=== PATIENT | male | born 1950 | race Caucasian/White ===

== ENCOUNTER 2016-06-18 21:27 | Emergency (ER) | payer BC ==
[~2016-06-18] VITALS: Ht 177.8 cm; Wt 86.2 kg
[2016-06-18] MEDS ORDERED: VITAPULSE (22:25)
[2016-06-18] MEDS ORDERED: DILT180T7 (22:25)
[2016-06-18] MEDS ORDERED: LOSA50TA36 (22:25)
[2016-06-18] MEDS ORDERED: OMEGA (22:27)
[2016-06-18] MEDS ORDERED: KRILL OIL (22:27)
[2016-06-18] MEDS ORDERED: methylPREDNISolone 125 MG (Solu-MEDROL) VIAL IM ONE (22:45)
[2016-06-18] MEDS ORDERED: diphenhydrAMINE 50 MG/ML INJ (BENADRYL) IM ONE (22:45)
[2016-06-18] MEDS ORDERED: FAMOTIDINE 20 MG (PEPCID) TABLET ONE (22:52)
[2016-06-18] MEDS ORDERED: PRD20T PO (23:25)
--- NOTE | 2016-06-18 23:26 | ED General ---
General Chief Complaint: Allergic Reaction Stated Complaint: POSSIBLE ALLERGIC REACTION Nursing Triage Note: PATIEINT HAD AN OCCULAR GRANT COUPLE HRS AGO AND TOOK AN OTC MIGRAINE RELIEF MED (ACETAMINOPHEN/ASA/CAFFEINE). WITHIN 15 MIN, PT BROKE OUT IN HIVES GENERALIZED. NO AIRWAY ISSUE REPORTED. Nursing Sepsis Screen: No Definite Risk Source of Information: Patient Exam Limitations: No Limitations History of Present Illness Time Seen by Provider: 22:26 Initial Comments This 66-year-old gentleman presents to the emergency room with apparent allergic reaction from an [id number] headache medication containing acetaminophen, aspirin, and caffeine. He has not had reactions to these ingredients in the past. He has diffuse erythematous, pruritic, urticarial rash. He has not yet treated the reaction. He denies any tongue, lip, throat, or airway involvement. Allergies and Home Medications Allergies Coded Allergies: sulfamethoxazole (Verified Adverse Reaction, Mild, RASH, 06/18/16) trimethoprim (Verified Adverse Reaction, Mild, RASH, 06/18/16) Home Medications (Reported) (Reported) Diltiazem HCl 180 Mg Tab.er.24h #60 (Reported) Losartan Potassium 50 Mg Tablet #30 (Reported) Prednisone 20 Mg Tab #3 20 MG PO DAILY Prescribed by: PANCHITO OVIEDO on 06/18/16 0734 Constitutional: no symptoms reported EENTM: no symptoms reported Respiratory: no symptoms reported Cardiovascular: no symptoms reported Gastrointestinal: no symptoms reported Genitourinary: no symptoms reported Musculoskeletal: no symptoms reported Skin: see HPI Psychiatric/Neurological: No Symptoms Reported Hematologic/Lymphatic: No Symptoms Reported Past Limlmse-Qohwlo-Odzxbm Hx Patient Social History Alcohol Use: Rarely Uses Recreational Drug Use: No Smoking Status: Never a Smoker 2nd Hand Smoke Exposure: No Recent Foreign Travel: No Contact w/Someone Who Travel: No Recent Infectious Disease Expo: No Recent Hopitalizations: No Immunizations Up To Date Date of Influenza Vaccine: Jan 12, 2016 Seasonal Allergies Seasonal Allergies: No Surgeries HX Surgeries: Yes Surgeries: Adenoidectomy, Tonsillectomy Respiratory Hx Respiratory Disorders: No Cardiovascular Hx Cardiac Disorders: Yes (MITRAL VALVE PROLAPSE) Cardiac Disorders: Hypertension, Irregular Heartbeat, Valvular Heart Disease Neurological Hx Neurological Disorders: Yes (OCCULAR MIGRAINES) Neurological Disorders: Headaches /Migraines Reproductive System Hx Reproductive Disorders: No Genitourinary Hx Genitourinary Disorders: No Gastrointestinal Hx Gastrointestinal Disorders: No Musculoskeletal Hx Musculoskeletal Disorders: No Endocrine Hx Endocrine Disorders: No HEENT HX ENT Disorders: No Cancer Hx Cancer: No Psychosocial Hx Psychiatric Problems: No Integumentary HX Skin/Integumentary Disorder: No Blood Transfusions Hx Blood Disorders: No Physical Exam Vital Signs Vital Sign - Last 12Hours 06/18/16 06/18/16 22:08 23:35 Temp 98.7 Pulse 50 Resp 18 B/P 181/83 Pulse Ox 97 O2 Delivery Room Air Capillary Refill : Less Than 3 Seconds General Appearance: No Apparent Distress WD/WN HEENT: PERRL/EOMI Normal ENT Inspection Pharynx Normal Respiratory: Lungs Clear Normal Breath Sounds No Accessory Muscle Use No Respiratory Distress Cardiovascular: Regular Rate, Rhythm No Edema No Murmur Extremity: Normal Inspection No Pedal Edema Neurologic/Psychiatric: Alert Oriented x3 No Motor/Sensory Deficits Normal 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 Norm as Tested Skin: Rash (diffuse erythematous and pruritic rash) Progress/Results/Core Measures Results/Orders My Orders Orders-PANCHITO PHILLIPS MD Methylprednisolone Sod Succ (Solu-Medrol (06/18/16 22:45) Diphenhydramine Injection (Benadryl Inje (06/18/16 22:45) Famotidine Tablet (Pepcid Tablet) (06/19/16 09:00) Famotidine Tablet (Pepcid Tablet) (06/18/16 22:52) Medications Given in ED Current Medications Medications Dose Ordered Sig/Gaetano Route Start Time Stop Time Status Last Admin Dose Admin Diphenhydramine HCl 25 mg ONCE ONCE IM 06/18/16 22:45 06/18/16 22:46 DC 06/18/16 22:57 25 MG Methylprednisolone Sodium Succinate 125 mg ONCE ONCE IM 06/18/16 22:45 06/18/16 22:46 DC 06/18/16 22:57 125 MG Vital Signs/I&O Vital Sign - Last 12Hours 06/18/16 06/18/16 06/18/16 06/18/16 22:08 22:57 22:57 23:35 Temp 98.7 98.7 98.7 Pulse 50 84 Resp 18 B/P 181/83 Pulse Ox 97 99 O2 Delivery Room Air Blood Pressure Mean: 115 Progress Note : Progress Note Patient was given Solu-Medrol and Benadryl IM as well as Pepcid orally. He had excellent response. Departure Impression Impression: Primary Impression: Allergic reaction caused by a drug Qualified Code: T78.40XA - Allergy, unspecified, initial encounter Disposition: 01 HOME, SELF-CARE Condition: Improved Departure-Patient Inst. Decision time for Depature: 23:22 Referrals: ARCELIA DANIEL DO (PCP/Family) Primary Care Physician Patient Instructions: Drug Allergy Add. Discharge Instructions: If symptoms begin to rebound, take Benadryl 50 mg every 4 hours as needed. Complete the prednisone as prescribed to prevent rebound. If symptoms become severe including difficulty breathing, throat tightness, tongue swelling, or lip swelling, call 911 or present immediately to the emergency room. Avoid use of this medication in the future. Exercise caution when taking medications with aspirin, acetaminophen, or caffeine. Have Benadryl accessible if you try these medications in the future. All discharge instructions reviewed with patient and/or family. Voiced understanding. Scripts Prednisone 20 Mg Tab20 Mg PO DAILY #3 TAB Prov:PANCHITO PHILLIPS MD 06/18/16 PANCHITO PHILLIPS MD Jun 18, 2016 23:26
[2016-06-18 23:35] VITALS: BP 148/98
[2016-06-19] MEDS ORDERED: FAMOTIDINE 20 MG (PEPCID) TABLET PO SCH (09:00)
== END 2016-06-18 23:35 | disposition home or self-care (01) ==
LOC: EDUNIT# 21:27 → ER 21:29
DX: R21 Rash and other nonspecific skin eruption (principal); T78.40XA Allergy, unspecified, initial encounter; R51 Headache; I10 Essential (primary) hypertension
CPT/HCPCS: 96372; 99282

== ENCOUNTER 2019-12-09 07:06 | Day surgery (SDC) | payer MEDICARE, OTHER ==
[2019-12-09] VITALS (11 sets, daily range): BP systolic 107–187; BP diastolic 58–89
[~2019-12-09] VITALS: Ht 178 cm; Wt 77.0 kg
[~2019-12-09 07:06] MED LIST: DILT180T7; KRILL OIL; LOSA50TA63; OMEGA; PRD20T PO; VITAPULSE
[2019-12-09] MEDS ORDERED: HEParin (CATH LAB) 2,000 ML IV ONE (07:07)
[2019-12-09] MEDS ORDERED: LIDOCAINE 1% INJ 20 ML 20 ML VIAL ONE (07:07)
[2019-12-09] MEDS ORDERED: NS IV 1000 ML 1,000 ML ONE (07:07)
[2019-12-09] MEDS ORDERED: NS IV 1000 ML 1,000 ML IV SCH ×2 (07:15→09:51)
[2019-12-09] MEDS ORDERED: LOSA50TA63 PO ×2 (07:34→10:00)
[2019-12-09] MEDS ORDERED: BUPR150T7 PO (07:34)
[2019-12-09] MEDS ORDERED: METO50TA7 PO ×2 (07:34→10:00)
[2019-12-09 07:35] LABS: HEMOGLOBIN 14.9 G/DL (13.3-17.7); MEAN PLATELET VOLUME 8.8 FL (7.4-10.4); WHITE BLOOD COUNT 7.3 10^3/uL (4.3-11.0)
[2019-12-09 07:52] LABS: PROTHROMBIN TIME PATIENT 13.3 SEC (12.2-14.7)
[2019-12-09 08:01] LABS: ALBUMIN 4.1 GM/DL (3.2-4.5); BILIRUBIN,TOTAL 0.8 MG/DL (0.1-1.0); CALCIUM 9.1 MG/DL (8.5-10.1); CREATININE SERUM 1.24 MG/DL (0.60-1.30); POTASSIUM 3.8 MMOL/L (3.6-5.0)
[2019-12-09] MEDS ORDERED: MIDAZOLAM 5 MG/5 ML (VERSED) VIAL ONE (08:52)
[2019-12-09] MEDS ORDERED: fentaNYL INJECTION 100 MCG/2 ML AMP ONE (08:52)
--- NOTE | 2019-12-09 09:47 | Cardiac Procedure Note-CS/ASA ---
Pre-Procedure Note Pre-Op Procedure Note H&P Reviewed The H&P was reviewed, patient examined and no changes noted. Date H&P Reviewed: Dec 09, 2019 Time H&P Reviewed: 09:00 Conscious Sedation Pre-Proced Time 09:00 ASA Score 3 For ASA 3 and 4: Consider anesthesia and medical clearance. Also, for patients with a history of failed moderate sedation consider anesthesia. Airway Lungs Heart ASA score ASA 1: a normal healthy patient ASA 2: a patient with a mild systemic disease (mid diabetes, controlled hypertension, obesity ASA 3: a patient with a severe systemic disease that limits activity (angina, COPD, prior Myocardial infarction) ASA 4: a patient with an incapacitating disease that is a constant threat to life (CHF, renal failure) ASA 5: a moribund patient not expected to survive 24 hrs. (ruptured aneurysm) ASA 6: a declared brain- patient whose organs are being harvested. For emergent operations, add the letter E after the classification Mallampati Classification Grade 1 Sedation Plan Analgesia, Amnesia, Plan communicated to team members, Discussed options with patient/fam, Discussed risks with patient/fam The patient is an appropriate candidate to undergo the planned procedure, sedation, and anesthesia. The patient immediately re-assessed prior to indication. Desirae MARTIN MD Dec 09, 2019 09:47
--- NOTE | 2019-12-09 09:51 | Coronary Angiography Report ---
Coronary Angiography Report DATE OF PROCEDURE: 12/09/19 INDICATION: abnormal nuclear stress test, nonsustained ventricular tachycardia. PREOPERATIVE DIAGNOSIS: abnormal nuclear stress test, nonsustained ventricular tachycardia. POSTOPERATIVE DIAGNOSIS: patent epicardial coronary arteries. HISTORY: this is a 69-year-old gentleman with history of nonsustained ventricular tachycardia and abnormal nuclear stress test.Therefore, the patient was scheduled for coronary angiography. PROCEDURES PERFORMED: 1.Coronary angiography. 2.Left heart catheterization. COMPLICATIONS: None. SPECIMENS: None. ESTIMATED BLOOD LOSS: 10 mL ANESTHESIA: Conscious sedation ANTICOAGULATION: none. CONTRAST: 59 mL. FLUOROSCOPY: 3.1 minutes. FLOUROSCOPY DOSE: 359 mgy. 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 All the risks and complications were explained in detail; this included the risk of bleeding, vascular damage, stroke, PR and even . The patient was draped and prepped in the usual sterile fashion. Access was gained in the right femoral artery with a 5 [place] sheath. coronary angiography and left heart catheterization was performed with JR4 and JL4 catheter. FINDINGS: 1.Left main: patent. 2.LAD: patent. 3.Left circumflex artery: patent. 4.RCA: patent. 5.Left heart catheterization: LV pressure 129/0 mmHg. LVEDP 10. aortic pressure 124/80 mmHg. Normal LV function with no wall motion abnormalities. No gradient across the aortic valve. CONCLUSIONS: patent epicardial coronary arteries. Normal LV function. Frequent PVCs. Beta blockers for nonsustained ventricular tachycardia. Timmy Masters MD, FACP, FACC, [facility] Interventional Cardiology Desirae MASTERS MD Dec 09, 2019 09:51
[2019-12-09] MEDS ORDERED: PATIENT MAY USE OWN MEDS, ALL PO SCH (10:00)
--- NOTE | 2019-12-09 10:00 | Discharge Inst-Post CATH ---
Discharge Inst-CATH/EP Problems Reviewed?: Yes Final Diagnosis nonsustained ventricular tachycardia, patent epicardial coronary arteries Post Cardiac Cath/EP D/C Inst Follow Up/Plan follow with Dr. Masters in 3 weeks. <b>CARDIAC CATH/EP PROCEDURE DISCHARGE INSTRUCTIONS</b> ACTIVITY * Go Home directly and rest. * Limit activity of the leg (or wrist if it was used) for 7 days including aerobics, swimming, jogging, bicycling, etc. * Restrict stair-climbing for 7 days if possible, if not, climb up with your non-cath leg, then bring together on the same step. * Avoid lifting, pushing, pulling or excessive movement of the affected extremity for 7 days. * Customary sexual activity may be resumed after 2 days-use caution not to use a position that strains or causes pain to the affected extremity. * No driving for 24 hours. * NO SMOKING. * Avoid straining for bowel movements for 7 days. * Gentle walking on level ground is allowed. * Returning to work will depend on the type of procedure and the results. Your doctor will discuss this with you. CALL YOUR DOCTOR FOR ANY OF THE FOLLOWING: *If bleeding from the puncture site occurs- Apply gentle pressure to site with clean cloth and call your doctor or EMS. * If a knot or lump forms under the skin, increases in size, or causes pain. * If bruising appears to be worsening or moving further down your leg instead of disappearing. * Temperature above 101 F. CARE OF YOUR GROIN INCISION; * Bruising or purple discoloration of the skin near the puncture site is common. * You may shower only, no bathtub bathing for 5 days. Be careful to avoid slipping as your leg may feel stiff. * If a closure device was used on your femoral artery, please see the attached guide regarding care of the device and your leg. * Leave dressing on FOR 24 hours. CARE OF YOUR WRIST INCISION; * Bruising or purple discoloration of the skin near the puncture site is common. * You may shower. * DO NOT submerge wrist. * Leave dressing on FOR 24 hours. Desirae MASTERS MD Dec 09, 2019 10:00
--- NOTE | 2019-12-09 10:03 | Cardiology Discharge Summary ---
Diagnosis/Chief Complaint Date of Admission 12/09/2019 Date of Discharge 12/09/2019 Admission Diagnosis non-sustained ventricular tachycardia, abnormal nuclear stress test. Final/Discharge Diagnosis patent epicardial coronary arteries Chief Complaint/HPI Chief Complaint/HPI 69-year-old gentleman with nonsustained ventricular tachycardia and abnormal nuclear stress test. Discharge Summary Procedures coronary angiography showed patent epicardial coronary arteries. Normal LV function with no wall motion Abnormalities. Discharge Physical Examination unremarkable Hospital Course Was the Problem List Reviewed?: Yes unremarkable. Pending Labs Laboratory Tests 12/09/19 07:25: White Blood Count 7.3, Red Blood Count 4.77, Hemoglobin 14.9, Hematocrit 46, Mean Corpuscular Volume 96, Mean Corpuscular Hemoglobin 31, Mean Corpuscular Hemoglobin Concent 33, Red Cell Distribution Width 13.0, Platelet Count 263, Mean Platelet Volume 8.8, Prothrombin Time 13.3, INR Comment 1.0, Activated Partial Thromboplast Time 28, Sodium Level 140, Potassium Level 3.8, Chloride Level 105, Carbon Dioxide Level 27, Anion Gap 8, Blood Urea Nitrogen 21, Creatinine 1.24, Estimat Glomerular Filtration Rate 57, BUN/Creatinine Ratio 17, Glucose Level 104, Calcium Level 9.1, Corrected Calcium 9.0, Total Bilirubin 0.8, Aspartate Amino Transf (AST/SGOT) 22, Alanine Aminotransferase (ALT/SGPT) 19, Alkaline Phosphatase 70, Total Protein 7.0, Albumin 4.1 Discussion & Recommendations Discussion increase the dose of metoprolol. decrease the dose of losartan. Follow up appt.: Dr. Masters in 2-3 weeks. Dicharge Diet: Cardiac Diet Activity as Tolerated: Yes Home Medications Reviewed patient Home Medication Reconciliation performed by pharmacy medication reconciliations automotive brake technician and/or nursing. Patients Allergies have been reviewed. Discharge Home Medications: Reviewed and agree with Discharge Medication list on patient's Discharge Instruction sheet Condition at discharge stable. Instructions to patient/family follow with Dr. Masters in 3 weeks. Desirae MASTERS MD Dec 09, 2019 10:03
--- NOTE | 2019-12-09 14:05 | NUR ---
pt up walking in hallways w/o difficulty.
== END 2019-12-09 14:15 | disposition home or self-care (01) ==
LOC: CATH 07:06 → CSD 10:22 → CATH 14:15
PROVIDERS: ATTEND Internal Medicine Interventional Cardiology
DX: I47.2 Ventricular tachycardia (principal); R94.39 Abnormal result of other cardiovascular function study; Z88.8 Allergy status to other drugs, medicaments and biological substances; Z79.899 Other long term (current) drug therapy
CPT/HCPCS: 80053; 85027; 85610; 85730; 87081; 93458; C1760; C1894; 36415

== ENCOUNTER 2020-01-12 09:00 | Outpatient (RCR) | payer MEDICARE, OTHER ==
[~2020-01-12 09:00] MED LIST changes: +BUPR150T7 PO; +LOSA50TA63 PO; +METO50TA7 PO
== END 2020-04-11 | disposition home or self-care (01) ==
LOC: CARD 09:00
PROVIDERS: ATTEND Internal Medicine Interventional Cardiology
DX: I08.1 Rheumatic disorders of both mitral and tricuspid valves (principal); I11.9 Hypertensive heart disease without heart failure; I47.2 Ventricular tachycardia
CPT/HCPCS: 93306

== ENCOUNTER → 2020-12-15 | Outpatient (CLI) | payer MEDICARE, OTHER ==
[~2020-12-15] MED LIST changes: +APIX5TAB PO; +BUPR150T24 PO; -BUPR150T7 PO; +ELDE1CAP PO; +IBUP-2473 PO; +MTP100TCR PO; +PROP1.5D OU
== END ==
LOC: LABNPT 09:05
PROVIDERS: ATTEND Internal Medicine
DX: Z20.822 Contact with and (suspected) exposure to COVID-19 (principal)
CPT/HCPCS: 87636

== ENCOUNTER → 2020-12-15 | Outpatient (CLI) | payer MEDICARE, OTHER | LOC: CARD 08:08 | PROVIDERS: ATTEND Internal Medicine Cardiovascular Disease | DX: I08.3 Combined rheumatic disorders of mitral, aortic and tricuspid valves (principal) | CPT/HCPCS: 93306 ==

== ENCOUNTER → 2020-12-19 | Day surgery (SDC) | payer MEDICARE, OTHER ==
[2020-12-19] VITALS (7 sets, daily range): BP systolic 117–156; BP diastolic 64–90
[~2020-12-19] VITALS: Ht 177 cm; Wt 77.0 kg
[~2020-12-19] MED LIST changes: +LIDOCAINE 2% VISCOUS 15 ML UDC ONE; +LIDOCAINE 2% VISCOUS 15 ML UDC PO ONE; +NS IV 1000 ML 1,000 ML IV ONE; +NS IV 1000 ML 1,000 ML ONE
[2020-12-19 09:27] LABS: HEMATOCRIT 46 % (40-54); HEMOGLOBIN 15.1 g/dL (13.3-17.7); MEAN CORPUSCULAR HEMOGLOBIN 32 pg (25-34); MEAN CORPUSCULAR HGB CONC 33 g/dL (32-36); MEAN CORPUSCULAR VOLUME 98 fL (80-99); MEAN PLATELET VOLUME 9.1 fL (9.0-12.2); PLATELET COUNT 225 10^3/uL (130-400); WHITE BLOOD COUNT 7.8 10^3/uL (4.3-11.0)
[2020-12-19 09:32] LABS: INR 1.2 (0.8-1.4); PROTHROMBIN TIME PATIENT 15.1 SEC (12.2-14.7)
[2020-12-19 09:39] LABS: CALCIUM 9.6 MG/DL (8.5-10.1); CREATININE SERUM 1.2 MG/DL (0.60-1.30); POTASSIUM 4.5 MMOL/L (3.6-5.0); TOTAL PROTEIN 7.1 GM/DL (6.4-8.2)
--- NOTE | 2020-12-19 10:48 | Anesthesia-General Post-Op ---
MAC Patient Condition Mental Status/LOC: Same as Preop Cardiovascular: Satisfactory Nausea/Vomiting: Absent Respiratory: Satisfactory Pain: Controlled Complications: Absent Post Op Complications Complications None Follow Up Care/Instructions Patient Instructions None needed. Anesthesiology Discharge Order Discharge Order Patient is doing well, no complaints, stable vital signs, no apparent adverse anesthesia problems. No complications reported per nursing. KIERSTEN MOCTEZUMA CRNA Dec 19, 2020 10:48
== END | disposition home or self-care (01) ==
LOC: CATH 08:52
PROVIDERS: ATTEND Internal Medicine Cardiovascular Disease
DX: I34.0 Nonrheumatic mitral (valve) insufficiency (principal); I34.1 Nonrheumatic mitral (valve) prolapse; I48.0 Paroxysmal atrial fibrillation; I10 Essential (primary) hypertension; Z79.899 Other long term (current) drug therapy; Z79.01 Long term (current) use of anticoagulants
CPT/HCPCS: 36415; 80053; 80061; 85027; 85610; 85730; 93005; 93312